=== PATIENT | male | born 1970 | race American Indian/Alaskan Native ===

== ENCOUNTER 2017-03-29 09:59 | Emergency (ER) | payer OTHER ==
[2017-03-29 10:08] VITALS: BP 147/97
[2017-03-29] MEDS ORDERED: TYLENOL #3 PO ONE (12:29)
[2017-03-29] MEDS ORDERED: TRIMOX PO ONE (12:29)
--- NOTE | 2017-03-29 16:09 | Emergency Department Report ---
Entered by DORIS HILL, acting as scribe for IVAN OLIVAREZ PA. ED ENT HPI - General Chief complaint: Dental/Oral Stated complaint: LEFT SIDE TOOTHACHE/HEAD Source: patient Mode of arrival: Ambulatory Limitations: No Limitations - Related Data Previous Rx's Medication Instructions Recorded Last Taken Type Acetaminophen/Codeine [Tylenol 1 tab PO Q6H PRN #10 tab 03/29/17 Unknown Rx /Codeine # 3 tab] Amoxicillin [Amoxicillin TAB] 875 mg PO BID #20 tablet 03/29/17 Unknown Rx Ibuprofen [Motrin] 800 mg PO Q8HR PRN #30 tablet 03/29/17 Unknown Rx Allergies Allergy/AdvReac Type Severity Reaction Status Date / Time No Known Allergies Allergy Unverified 03/29/17 10:03 ED Dental HPI - General Chief complaint: Dental/Oral Stated complaint: LEFT SIDE TOOTHACHE/HEAD Time Seen by Provider: 03/29/17 12:25 Source: patient Mode of arrival: Ambulatory Limitations: No Limitations - History of Present Illness Initial comments: 46 y/o male with no significant PMHx presents to the ED c/o generalized bilateral upper dental pain that began 3 days ago. Rates pain a 10/10 in severity, which he describes as throbbing in quality. Aggravated with chewing and alleviated with medication. Associated symptoms include headache, but he denies ear pain, sore throat, fever, chills, nausea, vomiting, numbness, tingling, and drainage. Patient requests a referral to an installer helper. Reports going to an installer helper office recently to have dental treatment, but was told to come to the ED to have dental infection treated. Took Motrin and Sudafed with no relief. NKDA. JAIME complaint: tooth pain Onset/Timin -: days(s) 1 - tooth #13 pain 2 - tooth #4 is partially broken with decaying and infection 3 - dental caries present with hole 4 - tooth #21 is missing Severity: severe (10/10) Quality: other (throbbing) Consistency: constant Improves with: NSAID Worsens with: eating, chewing, movement Context- Dental: poor dental care Dental Associated Symptons: Yes: Headache. No: Earache, Sore Throat, Gum Swelling, Fever - Related Data Previous Rx's Medication Instructions Recorded Last Taken Type Acetaminophen/Codeine [Tylenol 1 tab PO Q6H PRN #10 tab 03/29/17 Unknown Rx /Codeine # 3 tab] Amoxicillin [Amoxicillin TAB] 875 mg PO BID #20 tablet 03/29/17 Unknown Rx Ibuprofen [Motrin] 800 mg PO Q8HR PRN #30 tablet 03/29/17 Unknown Rx Allergies Allergy/AdvReac Type Severity Reaction Status Date / Time No Known Allergies Allergy Unverified 03/29/17 10:03 ED Review of Systems Comment: All other systems reviewed and negative Constitutional: denies: chills, diaphoresis, fever, weakness Eyes: denies: eye pain, eye discharge, vision change ENT: dental pain (bilateral upper). denies: ear pain, throat pain, hearing loss , epistaxis, congestion Respiratory: denies: cough, orthopnea, shortness of breath, SOB with exertion, SOB at rest, stridor, wheezing Cardiovascular: denies: chest pain, palpitations, dyspnea on exertion, orthopnea , edema, syncope, paroxysmal nocturnal dyspnea Endocrine: no symptoms reported Gastrointestinal: denies: abdominal pain, nausea, vomiting, diarrhea Genitourinary: denies: urgency, dysuria Musculoskeletal: denies: back pain, joint swelling, arthralgia Skin: denies: rash, lesions Neurological: headache. denies: weakness, numbness, paresthesias ED Past Medical Hx - Past Medical History Previous Medical History?: No - Surgical History Past Surgical History?: No - Family History Family history: no significant - Social History Smoking Status: Current Every Day Smoker Substance Use Type: Marijuana - Medications Home Medications: Home Medications Medication Instructions Recorded Confirmed Last Taken Type Acetaminophen/Codeine [Tylenol 1 tab PO Q6H PRN #10 tab 03/29/17 Unknown Rx /Codeine # 3 tab] Amoxicillin [Amoxicillin TAB] 875 mg PO BID #20 tablet 03/29/17 Unknown Rx Ibuprofen [Motrin] 800 mg PO Q8HR PRN #30 tablet 03/29/17 Unknown Rx ED Physical Exam - General Limitations: No Limitations General appearance: alert, in no apparent distress - Head Head exam: Present: atraumatic, normocephalic - Eye Eye exam: Present: normal appearance, PERRL, EOMI Pupils: Present: normal accommodation - ENT ENT exam: Present: normal orophraynx, mucous membranes moist, TM's normal bilaterally, normal external ear exam. Absent: normal exam - Expanded ENT Exam Expanded Ear exam: Present: normal external inspection Mouth exam: Present: normal external inspection, tongue normal. Absent: drooling, trismus, muffled voice, tongue elevation, laceration Teeth exam: Present: dental caries (tooth #18 has a dental caries present with a hole), fractured tooth # (tooth #4 is partiaally fractured, decayed, and looks infected), dental tenderness # (13), other (no active bleeding, tooth #21 is missing). Absent: normal inspection, gingival enlargement Throat exam: Positive: normal inspection. Negative: tonsillar erythema, tonsillomegaly, tonsillar exudate, R peritonsillar mass, L peritonsillar mass - Neck Neck exam: Present: normal inspection, full ROM. Absent: tenderness, meningismus, lymphadenopathy, thyromegaly - Respiratory Respiratory exam: Present: normal lung sounds bilaterally. Absent: respiratory distress, wheezes, rales, rhonchi, stridor, chest wall tenderness, accessory muscle use, decreased breath sounds - Cardiovascular Cardiovascular Exam: Present: regular rate, normal rhythm, normal heart sounds. Absent: systolic murmur, diastolic murmur - GI/Abdominal GI/Abdominal exam: Present: soft, normal bowel sounds. Absent: distended, tenderness - Extremities Exam Extremities exam: Present: normal inspection, full ROM, normal capillary refill - Back Exam Back exam: Present: normal inspection, full ROM. Absent: tenderness - Neurological Exam Neurological exam: Present: alert, oriented X3, normal gait - Psychiatric Psychiatric exam: Present: normal affect, normal mood - Skin Skin exam: Present: warm, dry, intact. Absent: rash ED Course Vital Signs 03/29/17 10:05 Temperature 98.1 F Pulse Rate 67 Respiratory 15 Rate Blood Pressure 147/97 O2 Sat by Pulse 100 Oximetry ED Medical Decision Making - Medical Decision Making 46 year-old male presents with dental pain ED course: Patient was given Trimox and Tylenol #3 Vital signs stable patient is in no acute or respiratory distress. Discussed findings with patient about diagnoses. Discussed treatment in ED with patient Discussed with patient to take prescribed antibiotics Discussed with patient to follow up with installer helper as referred, and to return to the ED if symptoms return or worsen. Patient states understanding and will follow instructions. Pt verbally states understanding and will comply to follow up. ED Disposition Clinical Impression: Pain due to dental caries, Dental infection Disposition: TO HOME OR SELFCARE Is pt being admited?: No Does the pt Need Aspirin: No Condition: Stable Instructions: Toothache (ED), Dental Caries (ED) Prescriptions: Acetaminophen/Codeine [Tylenol /Codeine # 3 tab] 1 tab PO Q6H PRN #10 tab PRN Reason: Pain Amoxicillin [Amoxicillin TAB] 875 mg PO BID #20 tablet Ibuprofen [Motrin] 800 mg PO Q8HR PRN #30 tablet PRN Reason: Pain Referrals: PRIMARY CARE,MD [Primary Care Provider] - 3-5 Days [facility] [Outside] - 3-5 Days [facility] [Outside] - 3-5 Days [facility] [Outside] - 3-5 Days [facility] [Outside] - 3-5 Days Forms: Accompanied Note, Work/School Release Form(ED) Time of Disposition: 12:54 This documentation as recorded by the SERGIO terry JASMINE,accurately reflects the service I personally performed and the decisions made by ,IVAN OLIVAREZ PA.
== END 2017-03-29 13:09 | disposition home or self-care (01) ==
LOC: ED 09:59
DX: K02.9 Dental caries, unspecified (principal); K04.7 Periapical abscess without sinus; F17.200 Nicotine dependence, unspecified, uncomplicated
CPT/HCPCS: 99282